=== PATIENT | male | born 1990 | race Caucasian/White ===

== ENCOUNTER 2021-10-29 02:14 | Emergency (ER) | payer MEDICAID ==
[~2021-10-29] VITALS: Ht 167.6 cm; Wt 69.0 kg
[2021-10-29 02:30] VITALS: BP 140/70
[2021-10-29] MEDS ORDERED: NALOXONE HCL 0.4 MG/ML 1ML VIAL IM ONE (02:30)
[2021-10-29] MEDS ORDERED: NALO4SPR BOTHNSTRLS (02:34)
== END 2021-10-29 03:00 | disposition home or self-care (01) ==
LOC: ER 02:14
DX: T40.1X1A Poisoning by heroin, accidental (unintentional), initial encounter (principal); G92.8 Other toxic encephalopathy; F11.129 Opioid abuse with intoxication, unspecified; Y92.480 Sidewalk as the place of occurrence of the external cause
CPT/HCPCS: 99283; J2310